=== PATIENT | male | born 1950 | race Caucasian/White ===

== ENCOUNTER → 2025-02-20 12:31 | Outpatient (BNVA) | payer MEDICARE, SELFPAY | PROVIDERS: PCP Internal Medicine; Referring Provider Internal Medicine; Visit Provider Psychiatry & Neurology Neurology | DX: G62.9 Polyneuropathy, unspecified (principal); R53.83 Other fatigue; I10 Essential (primary) hypertension | CPT/HCPCS: 99215; 95908; 95885; 95887 ==